=== PATIENT | male | born 1985 | race Caucasian/White ===

== ENCOUNTER → 2022-11-09 10:58 | Outpatient (CLI) | payer OTHER, SELFPAY ==
--- NOTE | 2022-11-09 11:13 | XR_ITS ---
FINAL REPORT CLINICAL HISTORY: arthritis - M13.80 FINDINGS: 2 views of the right hand were obtained. There is no acute fracture. There is no dislocation. The joint spaces are intact. There is no acute soft tissue abnormality. IMPRESSION: No acute process. Reviewed, Interpreted and Dictated by Doug Valiente MD Transcribed by Mike Blevins Authenticated and [facility]
--- NOTE | 2022-11-09 11:13 | XR_ITS ---
FINAL REPORT CLINICAL HISTORY: .arthritis - M13.80 FINDINGS: 3 views of the right knee were obtained. There is no acute fracture or dislocation. The joint spaces are intact. There is no soft tissue abnormality. IMPRESSION: No acute process. Reviewed, Interpreted and Dictated by Doug Valiente MD Transcribed by Mike Blevins Authenticated and [facility]
--- NOTE | 2022-11-09 11:13 | XR_ITS ---
FINAL REPORT CLINICAL HISTORY: arthritis - M13.80 FINDINGS: Two views of the right shoulder were obtained. There is no acute fracture or dislocation. The joint spaces are intact. There are no soft tissue abnormalities. IMPRESSION: No acute process. Reviewed, Interpreted and Dictated by Doug Valiente MD Transcribed by Mike Blevins Authenticated and . [facility]
--- NOTE | 2022-11-09 11:14 | XR_ITS ---
FINAL REPORT CLINICAL HISTORY: arthritis - M13.80 FINDINGS: 3 views of the left knee were obtained. There is no acute fracture or dislocation. The joint spaces are intact. There is no soft tissue abnormality. IMPRESSION: No acute process. Reviewed, Interpreted and Dictated by Doug Valiente MD Transcribed by Mike Blevins Authenticated and [facility]
--- NOTE | 2022-11-09 11:14 | XR_ITS ---
FINAL REPORT CLINICAL HISTORY: arthritis - M13.80 FINDINGS: 2 views of the left hand were obtained. There is no acute fracture. There is no dislocation. The joint spaces are intact. There is no acute soft tissue abnormality. IMPRESSION: No acute process. Reviewed, Interpreted and Dictated by Doug Valiente MD Transcribed by Mike Blevins Authenticated and [facility]
--- NOTE | 2022-11-09 11:14 | XR_ITS ---
FINAL REPORT CLINICAL HISTORY: arthritis FINDINGS: 2 views of the right hip were obtained. There is no acute fracture or dislocation. The joint spaces are intact. There are no soft tissue abnormalities. IMPRESSION: No acute process. Reviewed, Interpreted and Dictated by Doug Valiente MD Transcribed by Mike Blevins Authenticated and [facility]
--- NOTE | 2022-11-09 11:14 | XR_ITS ---
FINAL REPORT CLINICAL HISTORY: arthritis - M13.80 FINDINGS: Two views of the left shoulder were obtained. There is no acute fracture or dislocation. The joint spaces are intact. There are no soft tissue abnormalities. IMPRESSION: No acute process. Reviewed, Interpreted and Dictated by Doug Valiente MD Transcribed by Mike Blevins Authenticated and [facility]
--- NOTE | 2022-11-09 11:20 | XR_ITS ---
FINAL REPORT CLINICAL HISTORY: arthritis FINDINGS: 2 views of the left hip and an AP pelvis were obtained. There is no acute fracture or dislocation. The joint spaces are intact. There are no soft tissue abnormalities. IMPRESSION: No acute process. Reviewed, Interpreted and Dictated by Doug Valiente MD Transcribed by Mike Blevins Authenticated and [facility]
== END ==
PROVIDERS: PCP Chiropractor; Visit Provider Chiropractor
DX: M13.80 Other specified arthritis, unspecified site (principal); M79.641 Pain in right hand; M79.642 Pain in left hand; M25.511 Pain in right shoulder; M25.512 Pain in left shoulder; M25.551 Pain in right hip; M25.552 Pain in left hip; M25.561 Pain in right knee; M25.562 Pain in left knee
CPT/HCPCS: 73030; 73120; 73130; 73502; 73562